=== PATIENT | female | born 1990 | race African-American/Black ===

== ENCOUNTER 2020-02-09 08:36 | Emergency (ER) | payer MEDICAID, OTHER ==
[~2020-02-09] VITALS: Ht 160 cm; Wt 77.1 kg
[~2020-02-09 08:36] MED LIST: ACETAMINOPHEN-1 EAC1 ORAL; ALBUTEROL SULF8.5 GM INH; ALBUTEROL2.5 MG/3 M HHN; AZITHROMYCIN250 MG ORAL; CIPRO500 MG PO; IBUPROFEN600 MG ORAL; KEFLEX500 MG ORAL; NKM; NORCO 5-325 TA1 EACH ORAL; ONDANSETRON ODT4 MG ORAL; PHENAZOPYRIDIN200 MG ORAL; POTASSIUM CHLO20 ME3 PO; PREDNISONE20 MG ORAL; PYRIDIUM100 MG ORAL; QVAR7.3 GM INH; RANITIDINE HCL150 MG ORAL
[2020-02-09 08:57] VITALS: BP 113/74
[2020-02-09] MEDS ORDERED: Albuterol ud Inhalation HHN ONE (09:15)
--- NOTE | 2020-02-09 10:16 | Emergency Room Report ---
History of Present Illness General Chief Complaint: Upper Respiratory Illness Source: Patient Present Illness HPI Patient states that she has had sharp pain in her left chest for the past few days. She states that she does have a history of asthma. She reports she has had a runny nose. She has had some shortness of breath. She denies cough or congestion. She denies fever or chills. She denies nausea or vomiting. She denies trauma or recent illness. She has no other complaints. 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 COVID-19 Screening: Negative COVID-19 COVID-19 Testing Source: oropharynx Patient History Past Medical History: see triage record, asthma Social History: Denies: smoking, alcohol use, drug use Now: No Reviewed Nursing Documentation: PMH: Agreed; PSxH: Agreed Nursing Documentation-PMH Hx Asthma: Yes Review of Systems All Other Systems: negative except mentioned in HPI Physical Exam Vital Signs Date Time Temp Pulse Resp B/P (MAP) Pulse Ox O2 Delivery O2 Flow Rate FiO2 02/09/20 08:49 98.2 82 19 116/80 (92) 96 Room Air Sp02 EP Interpretation: reviewed, normal General Appearance: no apparent distress, alert, GCS 15, non-toxic Head: normocephalic, atraumatic Eyes: bilateral eye normal inspection ENT: hearing grossly normal, no angioedema, normal voice Neck: normal inspection, full range of motion Respiratory: lungs clear, normal breath sounds, no respiratory distress, no retraction, no accessory muscle use, speaking full sentences Cardiovascular #1: regular rate, rhythm, no edema Rectal: deferred Musculoskeletal: back normal, normal range of motion, gait/station normal, non- tender Neurologic: alert, motor strength/tone normal, oriented x3, sensory intact, responsive, speech normal Psychiatric: judgement/insight normal, memory normal, mood/affect normal, no suicidal/homicidal ideation Skin: no rash, normal color Medical Decision Making Diagnostic Impression: Primary Impression: Chest pain Additional Impressions: URI, acute Asthma ER Course This patient has a clinical presentation consistent with asthma exacerbation and URI. Patient has a history of asthma and has shortness of breath and chest tightness. EKG was unremarkable. The patient was given an albuterol nebulizer treatment. The patient was also given prednisone orally. The patient had significant improvement in subjective shortness of breath. The patient also describes symptoms consistent with allergic rhinitis. I will also go ahead and give the patient Zyrtec. The patient is requesting a nebulizer machine she states that this albuterol delivery system works better for her. Overall, the patient is well-appearing and nontoxic. She is without respiratory distress with normal vital signs. The patient was educated that she should follow on with her primary care physician as she may need an evaluation by a rigging up man. However, at this time, the patient has no emergency medical condition. The patient was given close return precautions and followup instructions. This patient was evaluated in the context of the global COVID-19 pandemic, which necessitated consideration that the patient might be at risk for infection with the [id number] virus that causes COVID-19. Institutional protocols and algorithms that pertain to the evaluation of patients at risk for COVID-19 and the state of rapid change based on information released by multiple regulatory bodies including the CDC and federal and state organizations. These policies and algorithms were followed during the patient's care in the ED. Microbiology Date/Time Source Procedure Growth Status 02/09/20 09:08 Nasopharynx SARS-CoV-2 RdRp Gene Assay - Final Complete Chest X-Ray Diagnostic Results Chest X-Ray Diagnostic Results : Chest X-Ray Ordered: Yes # of Views/Limited/Complete: 1 View Indication: Chest Pain EP Interpretation: Yes Interpretation: no consolidation, no effusion, no pneumothorax, no acute cardiopulmonary disease Impression: No acute disease Electronically Signed by: Estela Land DO Last Vital Signs Date Time Temp Pulse Resp B/P (MAP) Pulse Ox O2 Delivery O2 Flow Rate FiO2 02/09/20 08:57 80 19 Room Air 02/09/20 08:57 98.2 113/74 96 Status: improved Disposition: HOME, SELF-CARE Condition: Improved Estela Land DO Feb 09, 2020 10:16
[2020-02-09] MEDS ORDERED: ALBUTEROL2.5 MG/3 M HHN (10:20)
[2020-02-09] MEDS ORDERED: A.I.R.S. NEBUL1 EACH MC (10:20)
[2020-02-09] MEDS ORDERED: PREDNISONE20 MG ORAL (10:20)
[2020-02-09] MEDS ORDERED: PROAIR HFA8.5 GM INH (10:20)
[2020-02-09 11:04] VITALS: BP 115/74
--- NOTE | 2020-02-09 15:10 | Diagnostic Imaging Report ---
Indication: Shortness of breath Technique: Portable AP view of the chest Comparison: 07/10/2015 Findings: Heart size and mediastinal contours are within normal limits for AP technique. There is no focal airspace consolidation, pneumothorax or pleural effusion. Osseous structures demonstrate no acute abnormality. Impression: No radiographic evidence of acute cardiopulmonary disease.
== END 2020-02-09 11:04 | disposition home or self-care (01) ==
LOC: EMR 09:28
DX: R07.9 Chest pain, unspecified (principal); J06.9 Acute upper respiratory infection, unspecified; J45.909 Unspecified asthma, uncomplicated
CPT/HCPCS: 71045; 93005; 94640; 99284; J7512; U0002

== ENCOUNTER → 2020-02-21 | Emergency (ER) | payer OTHER ==
[~2020-02-21] VITALS: Ht 157.5 cm; Wt 79.4 kg
[~2020-02-21] MED LIST changes: +A.I.R.S. NEBUL1 EACH MC; +IBUPROFEN600 M1 ORAL; +LIDODERM700 M1 TOPIC; +PROAIR HFA8.5 GM INH; +ROBAXIN-500MG ORAL
[2020-02-21 12:40] VITALS: BP 123/91
[2020-02-21] MEDS: Methocarbamol 750mg tab ORAL ONE ×2 (12:55→12:57)
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
[2020-02-21 14:35] VITALS: BP 126/94
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
== END | disposition home or self-care (01) ==
LOC: EMR 12:53
DX: S20.212A Contusion of left front wall of thorax, initial encounter (principal); S53.401A Unspecified sprain of right elbow, initial encounter; Y04.2XXA Assault by strike against or bumped into by another person, initial encounter; Y92.9 Unspecified place or not applicable
CPT/HCPCS: 71250; 99284